=== PATIENT | female | born 1965 | race African-American/Black ===

== ENCOUNTER 2017-09-18 18:01 | Emergency (ER) | payer BC, OTHER ==
[2017-09-18] MEDS: NAPROXEN 500 MG TABLET PO (18:32)
[2017-09-18] MEDS: CYCLOBENZAPRINE 10 MG TABLET. PO (18:32)
[2017-09-18] MEDS: HYDROcodone/APAP 5/325MG 1 TAB TABLET PO (18:33)
== END 2017-09-18 18:52 | disposition home or self-care (01) ==
LOC: ER 18:52
DX: S20.219A Contusion of unspecified front wall of thorax, initial encounter (principal); S50.12XA Contusion of left forearm, initial encounter; S80.01XA Contusion of right knee, initial encounter; M19.90 Unspecified osteoarthritis, unspecified site; G56.03 Carpal tunnel syndrome, bilateral upper limbs; Z90.49 Acquired absence of other specified parts of digestive tract; V47.5XXA Car driver injured in collision with fixed or stationary object in traffic accident, initial encounter; Y93.I9 Activity, other involving external motion; Y92.410 Unspecified street and highway as the place of occurrence of the external cause; Y99.8 Other external cause status
CPT/HCPCS: 71046; 99284-25

== ENCOUNTER → 2018-04-12 | Outpatient (CLI) | payer BC ==
[2017-09-18 18:13] VITALS: BP 145/79
[~2018-04-12] MED LIST: CYCL10TA2 PO
--- NOTE | 2018-04-12 16:36 | RAD ---
Bilateral knees, 6 views, 04/12/2018: HISTORY: Knee pain The knee joint spaces are well-maintained. No significant arthritic change is evident. There is moderate focal spurring along the medial margin of the left medial femoral condyle compatible with old trauma. No acute fracture or dislocation is identified. No joint effusion is evident. IMPRESSION: 1. Moderate spurring along the medial margin of the left medial femoral condyle. 2. No acute abnormality is detected. Electronically signed by: Tony Zamora MD (04/12/2018 4:33 PM) [facility]
== END | disposition home or self-care (01) ==
LOC: RAD 13:02
PROVIDERS: ATTEND Family Medicine
DX: M76.892 Other specified enthesopathies of left lower limb, excluding foot (principal); Z90.49 Acquired absence of other specified parts of digestive tract
CPT/HCPCS: 73562

== ENCOUNTER → 2018-05-31 | Outpatient (CLI) | payer BC ==
[2017-09-18 18:13] VITALS: BP 145/79
[~2018-05-31] MED LIST changes: +BUPIVACAINE 0.5% 50 ML VIAL. INJ ONE; +CONTRAST GIVEN. MC PRN; +IOHEXOL 300 MG/ML 50 ML VIAL. IJ ONE; +LIDOCAINE WITH 8.4% SOD BICARB 3 ML DISP.SYRIN. INJ ONE; +LIDOCAINE WITH 8.4% SOD BICARB 3 ML DISP.SYRIN. ONE; +methylPREDNISolone ACETATE 80 MG/ML VIAL. IM ONE
--- NOTE | 2018-05-31 16:36 | RAD ---
Examination: ARTHROCENT INT JT ASP/INJ RT History: right hip pain x 2 months, arthritis, 1cc depo 80 Medrol, 4 cc bupivacaine, 3 cc buffered lidocaine, 1 image, .3 minutes fluoro time Comparison/Correlation: None Findings: Risks and benefits of ultrasound-guided right hip joint injection of Depo-Medrol and bupivacaine were discussed with the patient. Informed consent was obtained. Fluoroscopy was utilized for 0.3 minutes. After preliminary localization of the anticipated site of needle placement by fluoroscopy, cleansing with Betadine swabs was performed. A sterile draped was placed. 3 cc buffered 1 percent lidocaine was administered at the anticipated site of needle placement. A 20-gauge spinal needle was placed into the lateral aspect of the right hip joint capsule under fluoroscopic guidance. Approximately 1 cc Isovue 300 was injected to confirm needle placement. 4 cc bupivacaine and 80 mg Depo-Medrol was injected into the right hip joint capsule and this was confirmed by fluoroscopy. Impression: Successful administration of bupivacaine and Depo-Medrol into the right hip joint capsule. Patient tolerated the procedure well without immediate complication. Electronically signed by: Pablo Holman MD (05/31/2018 4:32 PM) [facility]
== END | disposition home or self-care (01) ==
LOC: RAD 08:36
PROVIDERS: ATTEND Orthopaedic Surgery Sports Medicine
DX: M16.11 Unilateral primary osteoarthritis, right hip (principal)
CPT/HCPCS: 20610; 77002; J1040; J3490; Q9967; 20605

== ENCOUNTER → 2018-06-17 | Outpatient (CLI) | payer BC ==
[2017-09-18 18:13] VITALS: BP 145/79
[~2018-06-17] MED LIST changes: -BUPIVACAINE 0.5% 50 ML VIAL. INJ ONE; -CONTRAST GIVEN. MC PRN; -IOHEXOL 300 MG/ML 50 ML VIAL. IJ ONE; -LIDOCAINE WITH 8.4% SOD BICARB 3 ML DISP.SYRIN. INJ ONE; -LIDOCAINE WITH 8.4% SOD BICARB 3 ML DISP.SYRIN. ONE; -methylPREDNISolone ACETATE 80 MG/ML VIAL. IM ONE
--- NOTE | 2018-06-17 12:17 | RAD ---
EXAM: Lumbar spine MRI without contrast. HISTORY: Lower back pain and left hip pain. TECHNIQUE: Multiplanar, multisequence magnetic resonance imaging of the lumbar spine was performed without contrast. COMPARISON: Radiographs dated 06/14/2018. FINDINGS: There is mild grade 1 anterolisthesis of L4 on L5, measuring 4 mm. There is mild retrolisthesis of L5 on S1, measuring 3 mm. There is mild scoliosis. There is degenerative endplate remodeling with disc space narrowing and disc desiccation predominantly at L4-L5 and L5-S1. No suspicious osseous lesion is seen. There few incidental osseous hemangiomas. The conus terminates at L1. There is epidural lipomatosis at the mid and lower lumbar levels and within the sacral canal. At L1-L2, there is no stenosis At L2-L3, there is a mild disc bulge. There is minimal bilateral foraminal stenosis. At L3-L4, there is a minimal disc bulge with left foraminal annular tear. There is mild right greater than left facet arthropathy. There is no stenosis. At L4-L5, there is a left foraminal to extra foraminal disc protrusion with 4 mm superior extrusion superimposed on a disc bulge and endplate remodeling. There is severe bilateral facet arthropathy. There is grade 1 anterolisthesis. There is epidural lipomatosis. There is mild right and mild to moderate left foraminal stenosis with abutment of the exiting left greater than right L4 nerve roots. There is mild central canal stenosis. At L5-S1, there are left foraminal to extra foraminal disc protrusion superimposed on a disc bulge and endplate osteophytosis. There is epidural lipomatosis. There is mild left greater than right foraminal stenosis and abutment of the exiting L5 nerve roots. There is mild to moderate narrowing of the thecal sac. IMPRESSION: 1. Multilevel degenerative change throughout the lumbar spine, described in detail above. This results in minimal bilateral foraminal stenosis at L2-L3, mild right and [id number] left foraminal and mild central canal stenosis at L4-L5, and mild left greater than right foraminal and mild to moderate central canal stenosis at L5-S1. 2. Mild sclerosis and grade 1 anterolisthesis of L4 and L5 and retrolisthesis of L5 on S1. Electronically signed by: Sofia Pichardo MD (06/17/2018 12:13 PM) [facility]
== END | disposition home or self-care (01) ==
LOC: MRI 11:22
PROVIDERS: ATTEND Orthopaedic Surgery Sports Medicine
DX: M47.896 Other spondylosis, lumbar region (principal); M48.061 Spinal stenosis, lumbar region without neurogenic claudication; M48.07 Spinal stenosis, lumbosacral region; M25.551 Pain in right hip
CPT/HCPCS: 72148

== ENCOUNTER → 2018-07-14 | Outpatient (CLI) | payer BC ==
[2017-09-18 18:13] VITALS: BP 145/79
[~2018-07-14] MED LIST changes: +CHOL2000 PO; +GABA600T2 PO; +IOHEXOL 180 MG/ML 10 ML VIAL. ONE; +META-21 PO; +NAPR-514 PO; +methylPREDNISolone ACETATE 40 MG/ML VIAL. ONE; +methylPREDNISolone ACETATE 80 MG/ML VIAL. ONE
--- NOTE | 2018-07-16 06:04 | PAIN ---
DATE OF SERVICE: 07/15/2018 CHIEF COMPLAINT: Low back and bilateral lower extremity pain, right greater than left. HISTORY OF PRESENT ILLNESS: This is a 53-year-old female who presents with history of pain in the low back, right lower extremity for about six months or so, not a result of any specific injury or action that she is aware of, but it is increasing over time with walking, standing, change in positions, waking her from sleep at least 3-4 times a night. She uses a cane occasionally, but not every day. Does not have it with her today. The patient reports pain is constant, sharp, stabbing, throbbing, shooting with numbness and tingling in the legs, mostly in the posterior gluteus, posterior lateral thigh, lateral anterior thigh, anterior medial thighs bilaterally, worse on the right than the left. The patient reports it comes and goes during the day, but it is worse with walking and standing, also aching, cramping and at the end of her day, at night. The patient reports she has had no current physical therapies, chiropractic treatments or other exercises. She does some stretching on her own, but that is all. No formal treatments, otherwise. The patient did have some epidural injections she reports in 2000, but this was for childbirth and not her therapeutic back pain. The patient has tried metaxalone, gabapentin, naproxen as well as prednisone, none of these had helped significantly orally. The patient rates her disability rate from 0-10, 10 being the worst and 8 with family home responsibilities and social activity, 10 with recreation, 9 with occupation, 7 with sexual behavior, 6 with self-care and 7 with life support activities. She did have an MRI scan of lumbar spine showing multilevel degenerative change with minimal bilateral foraminal stenosis L2-L3 and mild right and mild to moderate left foraminal and mild central canal stenosis at L4-L5, mild left greater than right foraminal and [id number] central canal stenosis at L5-S1. PAST MEDICAL HISTORY: Significant for arthritis, early end-stage glaucoma. PREVIOUS SURGERIES: Include cholecystectomy and x 2. CURRENT MEDICATIONS: Include Neurontin, diclofenac, prednisone, Skelaxin. ALLERGIES: The patient has no known drug allergies. FAMILY HISTORY: Significant for stomach cancer in her father and high blood pressure. SOCIAL HISTORY: The patient does not drink alcohol; does not smoke; does not use any illegal, illicit or recreational drugs. She is single. Lives at home with 2 children, lives locally in [place], [place]. REVIEW OF SYSTEMS: Positive for those items mentioned in history of present illness. All systems reviewed and otherwise negative. It is complete, full and well documented on the patient's chart. PHYSICAL EXAMINATION: VITAL SIGNS: The patient's blood pressure is 120/77, pulse 59, respirations 18, temperature is 97.9 degrees Fahrenheit, height is 5 feet 6 inches, weight is 182 pounds. GENERAL: The patient is awake, alert, oriented, appropriate, very pleasant demeanor. HEENT: Head shows normocephalic, atraumatic. Extraocular movements intact and symmetrical. Oral cavity: Mucous membranes are moist and pink. Dentition is intact. NECK: Shows anterior throat supple without palpable lymphadenopathy noted. Swallow reflex is symmetrical. CHEST: Shows normal with inspection. Breath sounds clear to auscultation bilaterally. HEART: Shows S1, S2 clear. No murmurs auscultated. ABDOMEN: Soft, nontender, nondistended. No palpable organomegaly is noted. No rebound or guarding demonstrated. BACK: Shows spine grossly in the midline. Normal appearing thoracic kyphosis and lumbar lordotic curvature. Lumbar paraspinous musculature shows symmetrical on inspection and palpation shows some moderate tenderness but only diffusely in the lumbar distribution without radiation. The patient has good rotational motion of lumbar spine, both laterally as well as extension and flexion. No tenderness over the spinous process, sacrum or sacroiliac regions. EXTREMITIES: The patient's lower extremities show deep tendon reflexes 2+ in the patellar and 1+ tendo calcaneus tendons. Motor exam is approximately 4 on a scale of 5 on the right and 5/5 on the left dorsiflexion, extension, quadriceps and hamstring flexion. Peripheral pulses are 1+ posterior tibia. No peripheral edema is noted bilaterally. Straight leg raising noted to be positive on the right at about 45 degrees, but left is negative. Gaenslen's and Esvin's maneuvers are negative bilaterally. Peripheral pulses are 1+ posterior tibial. No peripheral edema is noted bilaterally. Lower extremities are warm and dry to touch, equal in color and appearance. The patient is able to stand, stand on her toes without difficulty or loss of balance and has a normal-appearing gait for short distance in the office today, does not appear to favor the right or left lower extremity significantly, not using any assistive devices. SKIN: Shows warm and dry, good turgor. No edema. No sores, rashes or bruising. IMPRESSION: 1. This is a 53-year-old female with approximate 6-month history of increasing pain in low back, right greater than left lower extremity in radicular fashion. 2. MRI scan of lumbar spine as noted. 3. Arthritis. PLAN: Options were discussed with the patient including conservative medical management, physical therapies and interventional techniques. She would like to pursue interventional techniques. We discussed a lumbar epidural steroid injection using description as well as anatomical model to describe the procedure. Risks were then discussed including, but not limited to bleeding, infection, possibility of epidural hematoma, subsequent neurological compromise, dural puncture, headaches, spinal cord and/or nerve damage, side effects of steroid medication and poor results regarding pain control. The patient understands and wished to proceed. The patient to return to clinic in approximately 2 weeks for followup, was counseled on return appointment, activity humeral and side effects to be aware of. DIAGNOSES: Lumbar radiculopathy with lumbar degenerative disk disease, lumbar spinal stenosis. PROCEDURE: Lumbar epidural steroid injection, translaminar approach L4-L5 using C-arm fluoroscopic guidance under sterile prep and drape using local anesthetic. MEDICATIONS INJECTED: A total of 120 mg Depo-Medrol plus 10 mL preservative-free normal saline and 2 mL of Isovue for contrast. CONDITION AT DISCHARGE: Stable. The patient tolerated the procedure well, had no complications. BALWINDER SOMMERS MD DR: JULAINNE/kem JOB#: [id number] / [id number]
== END | disposition home or self-care (01) ==
LOC: PNCL 09:15
PROVIDERS: ATTEND Anesthesiology
DX: M51.16 Intervertebral disc disorders with radiculopathy, lumbar region (principal); M48.061 Spinal stenosis, lumbar region without neurogenic claudication; Z90.49 Acquired absence of other specified parts of digestive tract; M19.90 Unspecified osteoarthritis, unspecified site; H40.89 Other specified glaucoma; Z98.890 Other specified postprocedural states; Z79.899 Other long term (current) drug therapy; Z80.0 Family history of malignant neoplasm of digestive organs
CPT/HCPCS: 62323; J1030; J1040; Q9965

== ENCOUNTER → 2018-09-05 | Outpatient (CLI) | payer BC ==
[2017-09-18 18:13] VITALS: BP 145/79
[~2018-09-05] MED LIST changes: -GABA600T2 PO; +GABA600T7 PO
--- NOTE | 2018-09-05 22:30 | PAIN ---
DATE OF SERVICE: 09/05/2018 PROGRESS NOTE FOR PAIN CLINIC DIAGNOSES: Lumbar radiculopathy with lumbar degenerative disk disease and lumbar spinal stenosis. HISTORY OF PRESENT ILLNESS: The patient is a 53-year-old female who returns for followup status post lumbar epidural steroid injection x 1 on 07/14/2018. The patient did very well with this but only for very limited time. She reports the pain returned after about a day or two in the low back and right greater than left lower extremity. The patient reports no new motor or sensory deficits and no new bowel or bladder incontinence. Still significant pain with walking, standing, change in positions and awakens her from sleep about 3-4 times at night. The patient reports it is constant, cramping, aching, sharp, tight in the low back or in the posterior gluteus, posterior lateral thigh, lateral anterior thigh, medial thighs, lower legs on the posterior aspect as well and again worse on the right than the left, but present bilaterally. The patient reports pain is 8 on a scale of 10 at all times, worst, average and at its least and is 8 on a scale of 10 today. The patient reports no new bowel or bladder incontinence and no new motor or sensory deficits or other complaints. PHYSICAL EXAMINATION: VITAL SIGNS: The patient's blood pressure 131/81, pulse 61, respirations 18 and temperature 97.9 degrees Fahrenheit. Height is 5 feet 6 inches and weighs 103 pounds. GENERAL: The patient is awake, alert, oriented, appropriate and very pleasant demeanor. HEENT: Head shows normocephalic and atraumatic. Extraocular movements are intact and symmetrical. Oral cavity: Mucous membranes moist and pink. Dentition is intact. NECK: Shows anterior throat supple without palpable lymphadenopathy noted. Swallow reflex symmetrical. CHEST: Shows normal with inspection. Breath sounds are clear to auscultation bilaterally. HEART: Shows S1 and S2 clear. No murmurs auscultated. ABDOMEN: Soft, nontender, nondistended and obese with no palpable organomegaly is noted. No rebound or guarding. BACK: Shows spine grossly in the midline. Slight exaggeration of the thoracic kyphosis and some minor flattening of lumbar lordotic curvature and lumbar paraspinous musculature shows symmetrical on inspection and palpation shows some moderate tenderness but only diffusely in the low lumbar distribution without radiation. No tenderness over the spinous processes, sacrum or sacroiliac regions. The patient has good rotational motion of the lumbar spine, both laterally as well as extension and flexion without difficulty. EXTREMITIES: Lower extremities show deep tendon reflexes at 2+ in the patellar, 1+ tendo-calcaneus tendons. Motor exam is approximately 4 on a scale 5 on the right, 5/5 on the left with dorsiflexion and extension. Peripheral pulses are 1+ posterior tibial. No peripheral edema is noted bilaterally. Options were discussed with the patient. The patient's old chart was reviewed as well as her current medication regimen updated. Current review of systems updated today as well. We will proceed with a second in the series of lumbar epidural steroid injection today with fluoroscopic guidance. Risks were again discussed including, but not limited to bleeding, infection, possibility of epidural hematoma, subsequent neurologic compromise, dural puncture, headaches, spinal cord and/or nerve damage, side effects of steroid medication and poor results regarding pain control. The patient understands and wished to proceed. The patient will return to the clinic in approximately 2 weeks for followup, was counseled as to return appointment, activity level and side effects to be aware of. DIAGNOSES: Lumbar radiculopathy with lumbar spinal stenosis and lumbar degenerative disk disease. PROCEDURE: Lumbar epidural steroid injection, translaminar approach, L5-S1 level using C-arm fluoroscopic guidance under sterile prep and drape using local anesthetic. MEDICATION INJECTED: A total of 120 mg Depo-Medrol plus 10 mL of preservative-free normal saline and 2 mL of Isovue for contrast. CONDITION AT DISCHARGE: Stable. The patient tolerated the procedure well and had no complications. BALWINDER SOMMERS MD DR: JULIANNE/kem JOB#: [id number] / [id number]
== END | disposition home or self-care (01) ==
LOC: PNCL 10:40
PROVIDERS: ATTEND Anesthesiology
DX: M51.16 Intervertebral disc disorders with radiculopathy, lumbar region (principal); M48.061 Spinal stenosis, lumbar region without neurogenic claudication
CPT/HCPCS: 62323; J1030; J1040; Q9965

== ENCOUNTER → 2019-05-11 | Outpatient (CLI) | payer BC ==
[2017-09-18 18:13] VITALS: BP 145/79
[~2019-05-11] MED LIST changes: -IOHEXOL 180 MG/ML 10 ML VIAL. ONE; -methylPREDNISolone ACETATE 40 MG/ML VIAL. ONE; -methylPREDNISolone ACETATE 80 MG/ML VIAL. ONE
--- NOTE | 2019-05-12 16:24 | RAD ---
DATE: 05/11/2019. EXAM: MAMMO CHUCHO SCREENING BILATERAL. HISTORY: Routine mammographic screening. COMPARISON: 07/14/2016.. This study was interpreted with the benefit of Computerized Aided Detection (CAD). FINDINGS: Breast Density: SCATTERED The breast parenchyma shows scattered fibroglandular densities. Breast parenchyma level B. Coarse and vascular calcifications are benign. There are no suspicious masses, microcalcifications or architectural distortion. The parenchymal pattern is stable. BI-RADS CATEGORY: 2 BENIGN FINDING(S). RECOMMENDED FOLLOW-UP: 12M 12 MONTH FOLLOW-UP. PQRS compliance statement: Patient information was entered into a reminder system with a target due date 05/11/2020 for the next mammogram. Mammography is a sensitive method for finding small breast cancers, but it does not detect them all and is not a substitute for careful clinical examination. A negative mammogram does not negate a clinically suspicious finding and should not result in delay in biopsying a clinically suspicious abnormality. "Our facility is accredited by the [employer] Mammography Program."
== END | disposition home or self-care (01) ==
LOC: MAMMO 13:34
PROVIDERS: ATTEND Family Medicine
DX: Z12.31 Encounter for screening mammogram for malignant neoplasm of breast (principal); N64.89 Other specified disorders of breast
CPT/HCPCS: 77063; 77067